=== PATIENT | female | born 1955 | race Caucasian/White ===

== ENCOUNTER 2016-12-21 18:29 | Emergency (ER) ==
[2016-12-21 18:35] VITALS: BP 162/94
--- NOTE | 2016-12-21 18:39 | PROVIDER DOCUMENTATION ---
HPI-Musculoskeletal Pain/Inj - GENERAL Chief Complaint: Extremity Injury Stated Complaint: @1800 LT LEG/ANKLE INJURY Time Seen by Provider: 12/21/16 18:38 Source: patient - HX OF PRESENT ILLNESS-MUSKULOSKELTAL Nature of Presenting Problem: Pt is a 61 y/o F c chief complaint of swelling and pain to the anterior lateral aspect of her L ankle after rolling it while stepping off her porch this evening. On arrival, pt is in minimal distress but is unable to tolerate standing or walking on her L foot. Review of Systems - Adult - REVIEW OF SYSTEMS - ADULT Constitutional: reports: no symptoms reported. denies: chills, fatique Eyes: reports: no symptoms reported. denies: blurred vision, double vision Ears, Nose, Mouth & Throat: reports: no symptoms reported. denies: ear pain, nose pain, throat pain Cardiovascular: reports: no symptoms reported. denies: chest pain, orthopnea Respiratory: reports: no symptoms reported. denies: cough, shortness of breath , wheezing Gastrointestinal: reports: no symptoms reported. denies: abdominal pain, nausea Genitourinary: reports: no symptoms reported. denies: dysuria, frequent UTI's Musculoskeletal: reports: bone pain, joint pain, joint swelling Integumentary: reports: no symptoms reported. denies: itching, rash Neurological: reports: no symptoms reported. denies: numbness, paresthesia Psychiatric: reports: no symptoms reported. denies: anxiety, emotional problems Endocrine: reports: no symptoms reported. denies: cold intolerance, heat intolerance Hematologic/Lymphatic: reports: no symptoms reported. denies: blood clots, low blood count Allergic/Immunologic: reports: no symptoms reported. denies: allergic reactions , food allergy All Other Systems: Reviewed and Negative Past History - Adult - PAST MEDICAL HISTORY-ADULT Review of Records: reports: Old Records Reviewed, Nursing Assessment Review, Medications Reviewed, Social history reviewed & non-contributory. Major Childhood Illnesses: reports: denies history Cardiovascular: reports: denies history Respiratory: reports: denies history Gastrointestinal: reports: denies history Obstetrical/Gynecological: reports: denies history Genitourinary: reports: denies history Musculoskeletal: reports: denies history Neurological: reports: denies history Endocrine/Immune: reports: denies history Other Conditions: reports: denies history - PRIOR SURGERIES/PROCEDURES Surgical/Procedure History: reports: reviewed, not pertinent - IMMUNIZATION STATUS Childhood Immunizations: See Nurse Assessment Flu Vaccine: See Nurse Assessment - FAMILY HISTORY Family History: CAD over 55 yo, CAD under 55yo, CVA/TIA, HTN - SOCIAL HISTORY Smoking: denies Substance Use: none/never Alcohol Use Frequency: never Living Situation: family Physical Exam-Injury Related - Physical Exam-Injury Related Initial Vital Signs Reviewed: Yes General Appearance: appears well, alert, no apparent distress Eyes: PERRL/EOMI, pink conjunctivae Head, Ears, Nose, Mouth & Throat: normocephalic/atraumatic, moist mucous membranes, normal ENT inspection Neck: non-tender, full range of motion, supple Respiratory: chest non-tender, lungs clear, normal breath sounds Cardiovascular: normal peripheral pulses, regular rate, rhythm, no edema Abdominal Exam: normal bowel sounds, non tender, soft Lymphatic: no adenopathy Back Exam: normal inspection, no CVA tenderness, no vertebral tenderness Extremity: tenderness (anterior lateral aspect of L ankle), other (limited rom due to pain) Integumentary: normal color, warm/dry, blanching Neurologic: grossly normal, no motor/sensory deficits Psych/Mental Status: normal mood/affect, normal thought content, normal thought process, oriented x 3 - Glascow Coma Score Best Eye Response ([place]): (4) open spontaneously Best Verbal Response ([place]): (5) oriented Best Motor Response ([place]): (6) obeys commands Progress - PLAN OF CARE/RESULTS Progress/Plan/Lab Results: Orders Category Date Time Status Jar[place] Wrap Application DIRECTED Care 12/21/16 19:08 Active Crutches DIRECTED Care 12/21/16 19:08 Active ANKLE COMPLETE LEFT [RAD] Stat Exams 12/21/16 18:38 Taken Hydrocodone/APAP 7.5 mg/325 mg [[place]-7.5] Med 12/21/16 19:11 Discontinued 1 each .ROUTE .STK-MED ONE Hydrocodone/APAP 7.5 mg/325 mg [[place]-7.5] Med 12/21/16 19:08 Discontinued 1 each PO NOW ONE Vital Signs - 24 hr 12/21/16 18:32 Temperature 97.6 F Pulse Rate 80 Respiratory 20 Rate Blood Pressure 162/94 O2 Sat by Pulse 100 Oximetry - XRAY 1 XRAY: Left XRAY Study: Ankle Impression: Normal XRAY Interpretation: NO FX Departure - Departure Time of Disposition Order: 19:16 DIAGNOSIS: Ankle sprain Qualifiers: Encounter type: initial encounter Involved ligament of ankle: tibiofibular ligament Laterality: left Qualified Code(s): S93.432A - Sprain of tibiofibular ligament of left ankle, initial encounter Disposition: HOME 01 Certified Medical Emergency: Emergent Condition: Stable Additional Instructions: ED Follow Up Instructions: You have been treated by a care provider in the Emergency Department. These instructions are being provided to you so you can have an understanding of how to care for yourself upon discharge. Upon discharge from the Emergency Department, you are responsible for making arrangements for follow-up care by a physician of your choice. Take all prescribed medications as directed. Return to the Emergency Department immediately for any new or worsening symptoms. You may call the Physician Referral phone number at [phone] to obtain a list of Physicians who are taking new patients. Prescriptions: Ibuprofen [Motrin] 800 mg PO Q8H PRN PRN #20 tablet PRN Reason: inflammation Omeprazole [Prilosec] 20 mg PO DAILY@0700 #20 capsule Referrals: Tomas Bermeo MD [Primary Care Provider] - Víctor Montalvo MD [STAFF PHYSICIAN] - Attestation - Physician/ ED Attestation Patient care was provided by Advanced Practice Provider:: Yes Advanced Practice Provider:: John Spence Advanced Practice Provider documentation review:: The Mid-level provider documentation, treatment plan and medical decision making was reviewed by the physician who agrees with all treatment and medical decision making by the P.
[2016-12-21] MEDS ORDERED: NORCO-7.5 PO ONE (19:08)
[2016-12-21] MEDS ORDERED: NORCO-7.5 ONE (19:11)
--- NOTE | 2016-12-22 08:10 | Diag Imaging Result Document ---
PROCEDURE NAME: ANKLE COMPLETE LEFT - 12/21/2016 LEFT ANKLE, 3 VIEWS: FINDINGS: There is no evidence of acute fracture or dislocation. No other definite bony abnormalities are present. IMPRESSION: No acute disease.
== END 2016-12-21 19:26 | disposition home or self-care (01) ==
LOC: ED 18:29
DX: S93.432A Sprain of tibiofibular ligament of left ankle, initial encounter (principal); M25.572 Pain in left ankle and joints of left foot; M25.472 Effusion, left ankle; Z82.49 Family history of ischemic heart disease and other diseases of the circulatory system; Z82.3 Family history of stroke; X58.XXXA Exposure to other specified factors, initial encounter